=== PATIENT | male | born 1995 | race American Indian/Alaskan Native ===

== ENCOUNTER 2018-09-30 22:14 | Emergency (ER) | payer OTHER ==
--- NOTE | 2018-09-30 22:29 | Emergency Department Report ---
Blank Doc - Documentation Documentation: This is a 23 y.o. male with numbness and tingling in fingers. Patient was di scharged from [facility] and sent to [facility] on 1012. Patient noncompliant with meds and psychosis. [facility] denied admission and sent here for evaluation. Patient states he took bactrim as prescribed after I&D of pilonidal cyst. [facility] didn't send a sitter. Ordered labs. Main ED for further evaluation.
[2018-09-30] MEDS ORDERED: ATIVAN IV ONE (23:17)
[2018-09-30] MEDS ORDERED: BENADRYL IV ONE (23:21)
[2018-09-30] MEDS ORDERED: SOLU-Medrol IV ONE (23:21)
--- NOTE | 2018-09-30 23:26 | Emergency Department Report ---
ED Seizure HPI - General Chief Complaint: Allergic Reaction Stated Complaint: TINGLING IN HANDS Time Seen by Provider: 09/30/18 22:24 Source: patient, EMS Mode of arrival: Ambulatory Limitations: No Limitations - History of Present Illness Initial Comments: Patient is 23 years old male with history of prior noticed schizophrenia. Patient was seen at [facility] ER and transferred to [facility] for admission. Upon arrival to [facility] patient started complaining of itching, patient was sent to our ER for evaluation of possible allergic reaction to Bactrim for which he is taking for pilonidal abscess. While in triage patient have an episode of generalized tonic-clonic seizure, patient fell and hit his head. Patient immediately rushed to the emergency room 19. Patient's seizure aborted before medication. Patient is alert and oriented now. MD Complaint: seizure -: Sudden Description of Episode: loss of consciousness, tonic-clonic movement, post-event confusion Witnessed:: Yes Trauma: Yes - Related Data Previous Rx's Medication Instructions Recorded Last Taken Type Clindamycin [Clindamycin CAP] 150 mg PO Q8H #21 cap 10/01/18 Unknown Rx Prednisone [predniSONE 10 mg 10 mg PO .TAPER #1 tab.ds.pk 10/01/18 Unknown Rx (6-Day Pack, 21 Tabs)] diphenhydrAMINE [Benadryl CAP] 25 mg PO Q8HR PRN #20 capsule 10/01/18 Unknown Rx levETIRAcetam [Keppra TAB] 500 mg PO BID #60 tablet 10/01/18 Unknown Rx Allergies Allergy/AdvReac Type Severity Reaction Status Date / Time amoxicillin [From Amoxil] Allergy Rash Verified 09/30/18 22:19 ED Review of Systems ROS: Stated complaint: TINGLING IN HANDS Other details as noted in HPI Comment: All other systems reviewed and negative Constitutional: denies: chills, fever Respiratory: denies: cough, orthopnea, shortness of breath Cardiovascular: denies: chest pain, palpitations Gastrointestinal: denies: abdominal pain, nausea Neurological: denies: headache, weakness, numbness, paresthesias, confusion ED Past Medical Hx - Past Medical History Previous Medical History?: No - Surgical History Additional Surgical History: cyst on back removed - Social History Smoking Status: Never Smoker Substance Use Type: None - Medications Home Medications: Home Medications Medication Instructions Recorded Confirmed Last Taken Type Clindamycin [Clindamycin CAP] 150 mg PO Q8H #21 cap 10/01/18 Unknown Rx Prednisone [predniSONE 10 mg 10 mg PO .TAPER #1 tab.ds.pk 10/01/18 Unknown Rx (6-Day Pack, 21 Tabs)] diphenhydrAMINE [Benadryl CAP] 25 mg PO Q8HR PRN #20 capsule 10/01/18 Unknown Rx levETIRAcetam [Keppra TAB] 500 mg PO BID #60 tablet 10/01/18 Unknown Rx ED Physical Exam - General Limitations: No Limitations General appearance: alert, in no apparent distress - Head Head exam: Present: normocephalic, normal inspection - Eye Eye exam: Present: normal appearance, PERRL - ENT ENT exam: Present: normal exam, normal orophraynx, mucous membranes moist - Neck Neck exam: Present: normal inspection - Respiratory Respiratory exam: Present: normal lung sounds bilaterally - Cardiovascular Cardiovascular Exam: Present: regular rate, normal rhythm, normal heart sounds - GI/Abdominal GI/Abdominal exam: Present: soft. Absent: distended, tenderness, guarding, rebound - Extremities Exam Extremities exam: Present: normal inspection, full ROM, normal capillary refill - Back Exam Back exam: Present: normal inspection, full ROM - Neurological Exam Neurological exam: Present: alert, oriented X3, CN II-XII intact, normal gait - Skin Skin exam: Present: warm, intact ED Course Vital Signs 09/30/18 09/30/18 09/30/18 22:24 23:16 23:20 Temperature 98.2 F Pulse Rate 73 117 H Respiratory 18 26 H Rate Blood Pressure 134/73 138/77 Blood Pressure [Left] O2 Sat by Pulse 100 99 99 Oximetry 09/30/18 09/30/18 09/30/18 23:26 23:30 23:35 Temperature 98.2 F Pulse Rate 118 H 124 H Respiratory 22 21 23 Rate Blood Pressure 138/77 Blood Pressure 138/77 [Left] O2 Sat by Pulse 98 97 97 Oximetry 09/30/18 09/30/18 09/30/18 23:40 23:44 23:50 Temperature Pulse Rate 137 H Respiratory 23 21 23 Rate Blood Pressure 151/78 151/78 138/77 Blood Pressure [Left] O2 Sat by Pulse 92 98 96 Oximetry 10/01/18 10/01/18 10/01/18 00:02 00:10 00:20 Temperature Pulse Rate Respiratory Rate Blood Pressure 138/77 138/77 127/68 Blood Pressure [Left] O2 Sat by Pulse 97 95 94 Oximetry 10/01/18 10/01/18 10/01/18 00:30 00:40 00:50 Temperature Pulse Rate Respiratory Rate Blood Pressure 118/60 118/60 120/64 Blood Pressure [Left] O2 Sat by Pulse 91 94 97 Oximetry 10/01/18 10/01/18 01:00 01:10 Temperature Pulse Rate Respiratory Rate Blood Pressure 120/59 120/59 Blood Pressure [Left] O2 Sat by Pulse 96 97 Oximetry - Reevaluation(s) Reevaluation #1: 10/01/18 01:42 Patient examined by me multiple times. Patient now is a awake, alert and oriented 3 in no acute distress. Patient stated that he had history of seizure before but she never took any medicine for it. ED Medical Decision Making - Lab Data Result diagrams: 09/30/18 22:49 09/30/18 22:49 - Radiology Data Radiology results: report reviewed Referring Physician: TERI JIMENEZ Patient Name: BRANDON GODWIN Date of : 1995 Sex: Male Report Date: 2018-10-01 Report Status: Finalized Findings [place] [id number] Cat Scan Report Signed Patient: BRANDON GODWIN MR#: [id number] : 1995 Acct:[id number] Age/Sex: 23 / M ADM Date: 09/30/18 Loc: ED Attending Dr: Ordering Physician: TERI JIMENEZ Date of Service: 09/30/18 Procedure(s): CT head/brain wo con Accession Number(s): [id number] cc: TERI JIMENEZ PROCEDURE: CT HEAD/BRAIN WO CON TECHNIQUE: Spiral imaging of the brain was obtained without IV contrast. HISTORY: seizure COMPARISONS: None FINDINGS: FINDINGS: Brain: Brain density appears normal. No evidence of intracranial hemorrhage. No parenchymal hemorrhage, mass lesions or mass effect are seen. No abnormal extra-axial fluid collects or masses are seen. Ventricles: Ventricles are normal size and are midline. Bone Windows: No evidence of skull fracture. Paranasal sinuses: Small nodular density seen anteriorly in the left side of the sphenoid sinus suggesting a small polyp or mucous retention cyst. Mastoid air cells: Clear. IMPRESSION: Negative unenhanced CT scan of the brain. Minimal paranasal sinus disease as described. If clinically indicated MRI of the brain could be obtained to evaluate for possible seizure focus. IMPRESSION: . This document is electronically signed by Miguelito Mckeon MD., October 01 2018 12:10:59 AM ET Transcribed By: CHUCKY Dictated By: MIGUELITO MCKEON MD Electronically Authenticated By: MIGUELITO MCKEON MD Signed Date/Time: 10/01/1812 DD/ TD/TT: 10/01/186 - Medical Decision Making Patient is 23 years old male with history of prior noticed schizophrenia. Patient was seen at [facility] and transferred to [facility] the [facility] facility for admission. Upon arrival to [facility] patient started complaining of itching, patient was sent to our ER for evaluation of possible allergic reaction to Bactrim for which he is taking for pilonidal abscess. While in triage patient have an episode of generalized tonic-clonic seizure, patient fell and hit his head. Patient immediately rushed to the emergency room 19. Patient's seizure aborted before medication. Patient is alert and oriented now. No more seizure activity observed in the ER. Patient received 1 g of Keppra IV. I will start patient on Keppra and advised patient to follow-up with a neurologist in the next 3-4 days. Will be discharged back to go to [facility] for his psychiatric treatment. Critical Care Time: Yes Critical care time in (mins) excluding proc time.: 30 Critical care attestation.: If time is entered above; I have spent that time in minutes in the direct care of this critically ill patient, excluding procedure time. ED Disposition Clinical Impression: Seizure, Allergic reaction, Abscess Disposition: [id number]/TX-65 PSY HOSP/PSY UNIT Is pt being admited?: No Condition: Stable Instructions: Allergies (ED), Recurrent Seizures Adult (ED), Abscess (ED) Prescriptions: Clindamycin [Clindamycin CAP] 150 mg PO Q8H #21 cap diphenhydrAMINE [Benadryl CAP] 25 mg PO Q8HR PRN #20 capsule PRN Reason: Itching levETIRAcetam [Keppra TAB] 500 mg PO BID #60 tablet Prednisone [predniSONE 10 mg (6-Day Pack, 21 Tabs)] 10 mg PO .TAPER #1 tab.ds.pk Referrals: PRIMARY CARE, [Primary Care Provider] - 3-5 Days
[2018-09-30] MEDS ORDERED: KEPPRA 1,000 MG/NS 0.75% 100ML 1,000 MG/100 ML BAG IV ONE (23:27)
[2018-09-30 23:28] LABS: Basophils # (Auto) 0.1 K/mm3 (0.0-0.1); Eosinophils % (Auto) 0.3 % (0.0-4.3); Hematocrit 39.8 % (35.5-45.6); Hemoglobin 13.2 gm/dl (11.8-15.2); Lymphocytes # (Auto) 0.9 K/mm3 (1.2-5.4); Lymphocytes % (Auto) 11.7 % (13.4-35.0); Mean Corpuscular HGB Conc 33 % (32-34); Mean Corpuscular Volume 90 fl (84-94); Monocytes # (Auto) 0.4 K/mm3 (0.0-0.8); Monocytes % (Auto) 5.1 % (0.0-7.3); Platelet Count 307 K/mm3 (140-440); Red Cell Distribution Width 14.9 % (13.2-15.2)
[2018-09-30] MEDS ORDERED: ZOFRAN ONE (23:28)
[2018-09-30] MEDS ORDERED: ZOFRAN IV ONE ×3 (23:31→23:39)
[2018-09-30 23:48] LABS: BUN/Creatinine Ratio 10; Blood Urea Nitrogen 7 mg/dL (9-20); Calcium 9.3 mg/dL (8.4-10.2); Hemolysis Index 9
--- NOTE | 2018-10-01 00:13 | Cat Scan Report ---
PROCEDURE: CT HEAD/BRAIN WO CON TECHNIQUE: Spiral imaging of the brain was obtained without IV contrast. HISTORY: seizure COMPARISONS: None FINDINGS: FINDINGS: Brain: Brain density appears normal. No evidence of intracranial hemorrhage. No parenchymal hemorr erick, mass lesions or mass effect are seen. No abnormal extra-axial fluid collects or masses are see n. Ventricles: Ventricles are normal size and are midline. Bone Windows: No evidence of skull fracture. Paranasal sinuses: Small nodular density seen anteriorly in the left side of the sphenoid sinus sugge sting a small polyp or mucous retention cyst. Mastoid air cells: Clear. IMPRESSION: Negative unenhanced CT scan of the brain. Minimal paranasal sinus disease as described. If clinically indicated MRI of the brain could be obtai shira to evaluate for possible seizure focus. IMPRESSION: . This document is electronically signed by Miguelito Mckeon MD., October 01 2018 12:10:59 AM ET
[2018-10-01 02:19] VITALS: BP 117/67
== END 2018-10-01 03:45 ==
LOC: ED 22:14
DX: L05.01 Pilonidal cyst with abscess (principal); R56.9 Unspecified convulsions; F20.9 Schizophrenia, unspecified; Z88.1 Allergy status to other antibiotic agents
CPT/HCPCS: 36415; 70450; 80048; 85025; 96365; 96375; 99285; G0480; J1200; J1953; J2060; J2405; J2930; 80320; 96374